=== PATIENT | female | born 1935 | race Caucasian/White ===

== ENCOUNTER → 2016-05-28 | Outpatient (CLI) | payer OTHER, BC ==
[~2016-05-28] MED LIST: ALEVE220 MG PO; AUGMENTIN875 MG PO; BENADRYL25 MG PO; CAPT25T PO; CAPTOPRIL25 MG PO; CELEBREX200 MG PO; CIPRO500 MG PO; CIPROFLOXACIN500 M1 PO; COUMADIN1 MG PO; COUMADIN4 MG PO; FOSAMAX70 MG PO; HYDROCODON-ACE1 EAC7 PO; IRON325 M1 PO; LISINOPRIL-HCT1 EAC3 PO; METRONIDAZOLE500 MG PO; NORCO 5/3251 TABLET PO; OYSTER SHELL W1 EACH PO; SENNA-TIME S T1 EACH PO; TYLENOL EXTRA500 MG PO; TYLENOL REGULA325 MG PO; ZOFRAN4 MG PO
== END | disposition home or self-care (01) ==
LOC: RAD 10:05
DX: R22.32 Localized swelling, mass and lump, left upper limb (principal); M79.622 Pain in left upper arm; Z72.0 Tobacco use
CPT/HCPCS: 93971

== ENCOUNTER 2016-06-10 02:09 | Emergency (ER) | payer OTHER, BC ==
[~2016-06-10] VITALS: Ht 167.6 cm; Wt 74.4 kg
[2016-06-10 02:37] LABS: HEMATOCRIT 40.2 % (36.0-46.0); MCH 32.2 PG (29.0-34.0); MCHC 34.8 G/DL (30.0-36.0); MCV 92.4 FL (83-99); MEAN PLAT.VOLUME 8.2 uM^3 (9.5-12.4); PLATELET COUNT 313 K/uL (156-360); RBC DIS.WIDTH-SD 42.8 % (39-53); RED BLOOD COUNT 4.35 M/uL (3.80-5.20); WHITE BLOOD COUNT 10.2 K/uL (4.1-10.2)
[2016-06-10 02:45] LABS: CHLORIDE 97 mEq/L (99-109); SODIUM 133 mEq/L (136-147)
[2016-06-10 02:46] LABS: GLUCOSE 107 mg/dL (70-99)
[2016-06-10 02:48] LABS: ANION GAP 10 MEQ/L (2-14)
[2016-06-10 02:50] LABS: GFR ESTIMATE (CALCULATED) > 59 mL/min/
[2016-06-10 02:51] LABS: UREA NITROGEN (BUN) 13 mg/dL (9-23)
[2016-06-10 02:58] LABS: TROP-I INTERPRETATION NEGATIVE; TROPONIN-I < 0.01 ng/mL (0.0-0.30)
[2016-06-10 03:18] LABS: ADD MIUA? YES; BILIRUBIN NEGATIVE; BLOOD MODERATE; COLOR STRAW ((YELLOW)); GLUCOSE (STRIP) NEGATIVE; KETONES NEGATIVE; LEUKOCYTES NEGATIVE; NITRITE NEGATIVE; PROTEIN (STRIP) NEGATIVE; SPECIFIC GRAVITY 1.005 (1.000-1.030); UROBILINOGEN 0.2 MG/DL (0.2-1.0)
[2016-06-10] MEDS ORDERED: PEPCID20 MG PO (03:26)
[2016-06-10] MEDS ORDERED: PREDNISONE50 MG PO (03:26)
[2016-06-10 03:28] LABS: BACTERIA RARE /HPF; EPITHELIAL CELLS RARE /HPF; MUCUS NONE SEEN /LPF; RED BLOOD CELLS 0-5 /HPF (0-5); UCUL ADDED? NO; WHITE BLOOD CELLS 0-5 /HPF (0-5)
[2016-06-10 03:35] VITALS: BP 131/79
== END 2016-06-10 03:37 | disposition home or self-care (01) ==
LOC: EME 02:09
PROVIDERS: Emergency Medicine
DX: R07.2 Precordial pain (principal); R21 Rash and other nonspecific skin eruption; I10 Essential (primary) hypertension; M19.90 Unspecified osteoarthritis, unspecified site; Z87.891 Personal history of nicotine dependence; Z88.1 Allergy status to other antibiotic agents
CPT/HCPCS: 71020; 80048; 81003; 84484; 85027; 93005; 99281; 99285; J1200; J2405; J2930; S0028

== ENCOUNTER 2016-06-12 00:50 | Observation (INO) | payer OTHER, BC ==
[~2016-06-12] VITALS: Ht 167.6 cm; Wt 70.0 kg
[~2016-06-12 00:50] MED LIST changes: +PEPCID20 MG PO; +PREDNISONE50 MG PO
[2016-06-12 01:22] LABS: HEMATOCRIT 40.4 % (36.0-46.0); MCHC 34.7 G/DL (30.0-36.0); MCV 92.4 FL (83-99); MEAN PLAT.VOLUME 8.1 uM^3 (9.5-12.4); PLATELET COUNT 357 K/uL (156-360); RBC DIS.WIDTH-CV 12.9 % (11.8-14.6); RBC DIS.WIDTH-SD 42.5 % (39-53); RED BLOOD COUNT 4.37 M/uL (3.80-5.20); WHITE BLOOD COUNT 8.1 K/uL (4.1-10.2)
[2016-06-12 01:29] LABS: CHLORIDE 99 mEq/L (99-109); POTASSIUM 3.7 mEq/L (3.7-5.4); SODIUM 133 mEq/L (136-147)
[2016-06-12 01:31] LABS: GLUCOSE 113 mg/dL (70-99)
[2016-06-12 01:32] LABS: ANION GAP 10 MEQ/L (2-14)
[2016-06-12 01:34] LABS: GFR ESTIMATE (CALCULATED) > 59 mL/min/
[2016-06-12 01:35] LABS: UREA NITROGEN (BUN) 17 mg/dL (9-23)
[2016-06-12 01:41] LABS: TROP-I INTERPRETATION NEGATIVE; TROPONIN-I < 0.01 ng/mL (0.0-0.30)
[2016-06-12] MEDS ORDERED: LISINOPRIL20 MG PO (02:00)
[2016-06-12] MEDS ORDERED: ERGOCALCIF50000 UNIT PO (02:00)
[2016-06-12 03:10] LABS: EOSINOPHIL (%) 0.4 % (0-5); IMMATURE GRANULOCYTE (%) 0.4 % (0.0-0.7); IMMATURE GRANULOCYTE COUNT 0.3 K/uL; LYMPHOCYTE COUNT 1.8 K/uL (1.0-2.8); MONOCYTE (%) 2.7 % (3-12); MONOCYTE COUNT 0.2 K/uL (0-0.8); NEUTROPHIL (%) 74.4 % (45-76); NEUTROPHIL COUNT 6.1 K/uL (1.8-6.4)
[2016-06-12 03:30] VITALS: BP 136/75
[2016-06-12 03:40] VITALS: BP 136/75
[2016-06-12 08:23] LABS: TROP-I INTERPRETATION NEGATIVE; TROPONIN-I 0.01 ng/mL (0.0-0.30)
[2016-06-12 08:43] LABS: C3 COMPLEMENT 98 MG/DL (58-170); C4 COMPLEMENT 20 MG/DL (10-40)
[2016-06-12 09:21] VITALS: BP 124/60
[2016-06-12] MEDS ORDERED: PREDNISONE50 MG PO (10:53)
[2016-06-12] MEDS ORDERED: ZANTAC150 MG PO (10:53)
[2016-06-12] MEDS ORDERED: BENADRYL25 MG PO (10:53)
[2016-06-12] MEDS ORDERED: PROTONIX40 MG PO (10:53)
[2016-06-12 12:15] VITALS: BP 121/58
[2016-06-12 13:10] LABS: TROP-I INTERPRETATION NEGATIVE; TROPONIN-I 0.01 ng/mL (0.0-0.30)
[2016-06-12 15:52] VITALS: BP 170/86
== END 2016-06-12 15:45 | disposition home or self-care (01) ==
LOC: EME 00:50 → EDOF 02:12 → 5WEST 03:20
PROVIDERS: Hospitalist; Physician Assistant Medical
DX: R07.89 Other chest pain (principal); L27.0 Generalized skin eruption due to drugs and medicaments taken internally; T36.1X5A Adverse effect of cephalosporins and other beta-lactam antibiotics, initial encounter; F41.9 Anxiety disorder, unspecified; K21.9 Gastro-esophageal reflux disease without esophagitis; R13.10 Dysphagia, unspecified; I10 Essential (primary) hypertension; M19.90 Unspecified osteoarthritis, unspecified site; G89.29 Other chronic pain; M81.0 Age-related osteoporosis without current pathological fracture; F17.210 Nicotine dependence, cigarettes, uncomplicated
CPT/HCPCS: 71020; 80048; 81003; 84484; 85025; 85027; 85651; 86038; 86140; 86160; 86160 90; 93005; 99281; 99285; C9113; G0378; J1200; J1644; J2920; J2930; S0028

== ENCOUNTER 2016-08-31 20:38 | Inpatient (IN) | payer OTHER, BC ==
[~2016-08-31] VITALS: Ht 167.6 cm; Wt 70.0 kg
[~2016-08-31 20:38] MED LIST changes: +ERGOCALCIF50000 UNIT PO; +LISINOPRIL20 MG PO; +PROTONIX40 MG PO; +ZANTAC150 MG PO
[2016-08-31 21:08] LABS: EOSINOPHIL (%) 1.3 % (0-5); EOSINOPHIL COUNT 0.2 K/uL (0-0.3); HEMATOCRIT 44.8 % (36.0-46.0); IMMATURE GRANULOCYTE (%) 1.1 % (0.0-0.7); IMMATURE GRANULOCYTE COUNT 0.2 K/uL; INSTRUMENT ABS NEUTROPHIL CT 7.2 K/uL; LYMPHOCYTE COUNT 5.9 K/uL (1.0-2.8); MCH 31.5 PG (29.0-34.0); MCHC 33.9 G/DL (30.0-36.0); MCV 92.9 FL (83-99); MEAN PLAT.VOLUME 9.3 uM^3 (9.5-12.4); MONOCYTE (%) 4.2 % (3-12); MONOCYTE COUNT 0.6 K/uL (0-0.8); NEUTROPHIL COUNT 7.2 K/uL (1.8-6.4); NRBC (%) 0.1 /100 WBC (0-0); PLATELET COUNT 163 K/uL (156-360); RBC DIS.WIDTH-CV 13.2 % (11.8-14.6); RBC DIS.WIDTH-SD 45.1 % (39-53); RED BLOOD COUNT 4.82 M/uL (3.80-5.20)
[2016-08-31 21:54] LABS: CHLORIDE 102 mEq/L (99-109); POTASSIUM 2.9 mEq/L (3.7-5.4); SODIUM 135 mEq/L (136-147)
[2016-08-31 21:56] LABS: GLUCOSE 140 mg/dL (70-99)
[2016-08-31 21:57] LABS: ANION GAP 13 MEQ/L (2-14)
[2016-08-31 21:58] LABS: TOTAL BILIRUBIN 0.3 mg/dL (0.0-1.0)
[2016-08-31 21:59] LABS: ALKALINE PHOSPHATASE 59 IU/L (3-129)
[2016-08-31 22:00] LABS: GFR ESTIMATE (CALCULATED) > 59 mL/min/
[2016-08-31 22:01] LABS: UREA NITROGEN (BUN) 14 mg/dL (9-23)
[2016-08-31 22:03] LABS: LIPASE 51 U/L (1.0-51.0)
[2016-09-01 00:17] LABS: INTERNAL CONTROL VALID? YES
[2016-09-01 00:31] LABS: ADD MIUA? YES; BILIRUBIN NEGATIVE; BLOOD SMALL; COLOR YELLOW ((YELLOW)); GLUCOSE (STRIP) NEGATIVE; KETONES NEGATIVE; LEUKOCYTES NEGATIVE; NITRITE NEGATIVE; PROTEIN (STRIP) NEGATIVE; SPECIFIC GRAVITY 1.014 (1.000-1.030); UROBILINOGEN 0.2 MG/DL (0.2-1.0)
[2016-09-01 00:48] LABS: C DIFF TOXIN NEGATIVE (NEGATIVE)
[2016-09-01 00:57] LABS: BACTERIA 1+ /HPF; EPITHELIAL CELLS RARE /HPF; HYALINE CASTS 0-5 /LPF; MUCUS NONE SEEN /LPF; RED BLOOD CELLS 0-5 /HPF (0-5); UCUL ADDED? NO; WHITE BLOOD CELLS 0-5 /HPF (0-5)
[2016-09-01 01:01] LABS: PROBE CHECK PASS; SPECIMEN PROCESSING CONTROL PASS
[2016-09-01 02:10] VITALS: BP 145/67
[2016-09-01 02:19] LABS: TROP-I INTERPRETATION NEGATIVE; TROPONIN-I 0.04 ng/mL (0.0-0.30)
[2016-09-01 03:15] LABS: TROP-I INTERPRETATION NEGATIVE; TROPONIN-I 0.01 ng/mL (0.0-0.30)
[2016-09-01 04:30] VITALS: BP 140/66
[2016-09-01 06:11] LABS: CHLORIDE 109 mEq/L (99-109); SODIUM 138 mEq/L (136-147)
[2016-09-01 06:12] LABS: GLUCOSE 109 mg/dL (70-99)
[2016-09-01 06:13] LABS: ANION GAP 10 MEQ/L (2-14)
[2016-09-01 06:15] LABS: ALKALINE PHOSPHATASE 45 IU/L (3-129); TOTAL BILIRUBIN 0.5 mg/dL (0.0-1.0)
[2016-09-01 06:16] LABS: GFR ESTIMATE (CALCULATED) > 59 mL/min/
[2016-09-01 06:17] LABS: UREA NITROGEN (BUN) 12 mg/dL (9-23)
[2016-09-01 06:24] LABS: TROP-I INTERPRETATION NEGATIVE; TROPONIN-I 0.06 ng/mL (0.0-0.30)
[2016-09-01 06:25] LABS: MCH 31.4 PG (29.0-34.0); MCHC 32.8 G/DL (30.0-36.0); MCV 95.6 FL (83-99); MEAN PLAT.VOLUME 8.4 uM^3 (9.5-12.4); PLATELET COUNT 263 K/uL (156-360); RBC DIS.WIDTH-CV 13.5 % (11.8-14.6); RED BLOOD COUNT 4.08 M/uL (3.80-5.20)
[2016-09-01 07:41] VITALS: BP 118/57
[2016-09-01 14:52] LABS: TROP-I INTERPRETATION NEGATIVE; TROPONIN-I 0.03 ng/mL (0.0-0.30)
[2016-09-01 16:29] VITALS: BP 141/65
[2016-09-01 19:30] VITALS: BP 144/67
[2016-09-01 22:42] LABS: INTERNAL CONTROL VALID? YES
[2016-09-01 23:08] LABS: C DIFF TOXIN NEGATIVE (NEGATIVE)
[2016-09-01 23:24] LABS: PROBE CHECK PASS; SPECIMEN PROCESSING CONTROL PASS
[2016-09-02] VITALS (7 sets, daily range): BP systolic 137–170; BP diastolic 63–79
[2016-09-02 07:59] LABS: EOSINOPHIL (%) 1.4 % (0-5); EOSINOPHIL COUNT 0.1 K/uL (0-0.3); HEMATOCRIT 32.7 % (36.0-46.0); IMMATURE GRANULOCYTE (%) 0.6 % (0.0-0.7); IMMATURE GRANULOCYTE COUNT 0.1 K/uL; LYMPHOCYTE COUNT 2.2 K/uL (1.0-2.8); MCHC 32.7 G/DL (30.0-36.0); MCV 94.8 FL (83-99); MEAN PLAT.VOLUME 8.4 uM^3 (9.5-12.4); MONOCYTE (%) 11.7 % (3-12); MONOCYTE COUNT 1.1 K/uL (0-0.8); NEUTROPHIL (%) 62.9 % (45-76); PLATELET COUNT 246 K/uL (156-360); RBC DIS.WIDTH-CV 13.8 % (11.8-14.6); RED BLOOD COUNT 3.45 M/uL (3.80-5.20)
[2016-09-02 08:02] LABS: WHITE BLOOD COUNT 9.6 K/uL (4.1-10.2)
[2016-09-02 08:37] LABS: ALKALINE PHOSPHATASE 38 IU/L (3-129); ANION GAP 6 MEQ/L (2-14); C-REACTIVE PROTEIN 79.6 MG/L (0-10); CHLORIDE 106 MEQ/L (99-109); GFR ESTIMATE (CALCULATED) > 59 mL/min/; MAGNESIUM 1.6 mg/dl (1.3-2.7); SAMPLE HEMOLYSIS CHECK 0; SAMPLE ICTERIC CHECK 0; SAMPLE LIPEMIA CHECK 0; SODIUM 135 MEQ/L (136-147); TOTAL BILIRUBIN 0.7 MG/DL (0.0-1.0); UREA NITROGEN (BUN) 5 mg/dL (9-23)
[2016-09-02 08:40] LABS: GLUCOSE 75 mg/dL (70-99); POTASSIUM 3.8 MEQ/L (3.7-5.4)
[2016-09-02 08:50] LABS: ERTH.SED.RATE 2 MM/HR (0-30)
[2016-09-03 04:17] VITALS: BP 171/76
[2016-09-03 07:53] VITALS: BP 160/84
[2016-09-03] MEDS ORDERED: CIPRO500 MG PO (08:12)
[2016-09-03] MEDS ORDERED: FLAGYL500 MG PO (08:12)
== END 2016-09-03 13:32 | disposition home or self-care (01) | DRG 872 ==
LOC: EME 20:38 → 4EAST 23:54 → EDOF 23:54 → 4EAST 09-01 01:47 → 5SOUTH 09-02 22:19
PROVIDERS: Emergency Medicine; Internal Medicine
PROC: 02HV33Z Insertion of Infusion Device into Superior Vena Cava, Percutaneous Approach (ICD-10-PCS; principal; 2016-08-31)
DX: A41.9 Sepsis, unspecified organism (principal); R65.20 Severe sepsis without septic shock; K51.00 Ulcerative (chronic) pancolitis without complications; K21.9 Gastro-esophageal reflux disease without esophagitis; Z96.642 Presence of left artificial hip joint; M81.0 Age-related osteoporosis without current pathological fracture; I10 Essential (primary) hypertension; F17.211 Nicotine dependence, cigarettes, in remission; E87.2 Acidosis; E87.6 Hypokalemia; I95.9 Hypotension, unspecified; E86.0 Dehydration
CPT/HCPCS: 71010; 74177; 80053; 80202; 81003; 83605; 83630; 83690; 83735; 84484; 85025; 85027; 85651; 86140; 86900; 86901; 87040; 87177; 87493; 87506; 93005; 99281; 99285; J1644; J2270; J2405; J2543; J3370; J3480; J7030; J7050; S0028

== ENCOUNTER 2016-11-02 21:41 | Inpatient (IN) | payer OTHER, BC ==
[~2016-11-02] VITALS: Ht 167.6 cm; Wt 73.6 kg
[~2016-11-02 21:41] MED LIST changes: +FLAGYL500 MG PO
[2016-11-02 22:55] LABS: HEMATOCRIT 44.3 % (36.0-46.0); MCH 30.9 PG (29.0-34.0); MCHC 33.4 G/DL (30.0-36.0); MCV 92.5 FL (83-99); MEAN PLAT.VOLUME 8.4 uM^3 (9.5-12.4); PLATELET COUNT 308 K/uL (156-360); RED BLOOD COUNT 4.79 M/uL (3.80-5.20); WHITE BLOOD COUNT 15.5 K/uL (4.1-10.2)
[2016-11-02 23:11] LABS: CHLORIDE 100 mEq/L (99-109); POTASSIUM 3.5 mEq/L (3.7-5.4); SODIUM 136 mEq/L (136-147)
[2016-11-02 23:13] LABS: GLUCOSE 127 mg/dL (70-99)
[2016-11-02 23:14] LABS: ANION GAP 12 MEQ/L (2-14)
[2016-11-02 23:15] LABS: TOTAL BILIRUBIN 0.4 mg/dL (0.0-1.0)
[2016-11-02 23:17] LABS: ALKALINE PHOSPHATASE 65 IU/L (3-129); GFR ESTIMATE (CALCULATED) 56 mL/min/
[2016-11-02 23:18] LABS: UREA NITROGEN (BUN) 15 mg/dL (9-23)
[2016-11-02 23:19] LABS: DIRECT BILIRUBIN 0.2 mg/dL (0.0-0.3)
[2016-11-02 23:20] LABS: LIPASE 37 U/L (1.0-51.0)
[2016-11-03 00:13] LABS: C DIFF TOXIN NEGATIVE (NEGATIVE)
[2016-11-03 00:16] LABS: EOSINOPHIL (%) 0.6 % (0-5); EOSINOPHIL COUNT 0.1 K/uL (0-0.3); IMMATURE GRANULOCYTE (%) 0.7 % (0.0-0.7); IMMATURE GRANULOCYTE COUNT 0.1 K/uL; INSTRUMENT ABS NEUTROPHIL CT 11.3 K/uL; LYMPHOCYTE COUNT 2.1 K/uL (1.0-2.8); MONOCYTE (%) 9.6 % (3-12); MONOCYTE COUNT 1.4 K/uL (0-0.8); NEUTROPHIL (%) 75.1 % (45-76); NEUTROPHIL COUNT 11.3 K/uL (1.8-6.4)
[2016-11-03 00:25] LABS: PROBE CHECK PASS; SPECIMEN PROCESSING CONTROL PASS
[2016-11-03 00:46] LABS: PROTHROMBIN TIME 11.4 SEC (10.2-12.9)
[2016-11-03 00:49] LABS: PTT 30.1 SEC (25-37)
[2016-11-03 04:09] VITALS: BP 126/97
[2016-11-03 08:09] VITALS: BP 155/74
[2016-11-03 11:44] VITALS: BP 147/84
[2016-11-03 14:41] LABS: ADD MIUA? YES; BILIRUBIN NEGATIVE; BLOOD MODERATE; COLOR YELLOW ((YELLOW)); GLUCOSE (STRIP) NEGATIVE; KETONES NEGATIVE; LEUKOCYTES NEGATIVE; NITRITE NEGATIVE; PROTEIN (STRIP) NEGATIVE; UROBILINOGEN 0.2 MG/DL (0.2-1.0)
[2016-11-03 15:20] LABS: BACTERIA NONE SEEN /HPF; EPITHELIAL CELLS NONE SEEN /HPF; MUCUS TRACE /LPF; RED BLOOD CELLS 40-50 /HPF (0-5); UCUL ADDED? NO; WHITE BLOOD CELLS 0-5 /HPF (0-5)
[2016-11-03 15:33] VITALS: BP 130/62
[2016-11-03] MEDS ORDERED: ASPIR-LOW81 MG PO (16:54)
[2016-11-03] MEDS ORDERED: CIPRO500 MG PO (16:56)
[2016-11-03] MEDS ORDERED: FLAGYL500 MG PO (16:56)
[2016-11-03 19:28] VITALS: BP 144/74
[2016-11-03 23:48] VITALS: BP 134/71
[2016-11-04 04:04] VITALS: BP 131/68
[2016-11-04 06:38] LABS: ALKALINE PHOSPHATASE 38 IU/L (3-129); ANION GAP 3 MEQ/L (2-14); CHLORIDE 106 MEQ/L (99-109); GFR ESTIMATE (CALCULATED) > 59 mL/min/; SAMPLE HEMOLYSIS CHECK 0; SAMPLE ICTERIC CHECK 0; SAMPLE LIPEMIA CHECK 0; SODIUM 137 MEQ/L (136-147); TOTAL BILIRUBIN 0.5 MG/DL (0.0-1.0); UREA NITROGEN (BUN) 7 mg/dL (9-23)
[2016-11-04 06:39] LABS: GLUCOSE 82 mg/dL (70-99); POTASSIUM 4.3 MEQ/L (3.7-5.4)
[2016-11-04 07:04] LABS: HEMATOCRIT 35.8 % (36.0-46.0); MCH 31.3 PG (29.0-34.0); MCHC 33.5 G/DL (30.0-36.0); MCV 93.5 FL (83-99); MEAN PLAT.VOLUME 8.3 uM^3 (9.5-12.4); PLATELET COUNT 264 K/uL (156-360); RBC DIS.WIDTH-CV 13.2 % (11.8-14.6); RBC DIS.WIDTH-SD 45.2 % (39-53); WHITE BLOOD COUNT 5.8 K/uL (4.1-10.2)
[2016-11-04 07:07] LABS: RED BLOOD COUNT 3.83 M/uL (3.80-5.20)
[2016-11-04 08:58] VITALS: BP 146/72
== END 2016-11-04 12:42 | disposition home or self-care (01) | DRG 393 ==
LOC: EME → EDBD 21:41 → EME 21:41 → 5SOUTH 23:49 → EDOF 23:49 → ENRESERV 23:52 → 5SOUTH 11-03 03:54
PROVIDERS: Emergency Medicine; Physician Assistant Medical
DX: K55.9 Vascular disorder of intestine, unspecified (principal); N17.9 Acute kidney failure, unspecified; R65.11 Systemic inflammatory response syndrome (SIRS) of non-infectious origin with acute organ dysfunction; E86.0 Dehydration; E87.6 Hypokalemia; I10 Essential (primary) hypertension; F17.200 Nicotine dependence, unspecified, uncomplicated; Z96.642 Presence of left artificial hip joint; Z80.3 Family history of malignant neoplasm of breast; Z82.3 Family history of stroke
CPT/HCPCS: 74176; 80048; 80053; 80076; 81003; 83605; 83690; 85025; 85027; 85610; 85651; 85730; 86140; 87040; 87493; 93005; 99281; 99285; J1644; J2270; J2405; J2543; J3010; J3480; J7030; J7050

== ENCOUNTER 2017-10-31 18:53 | Inpatient (IN) | payer OTHER, BC ==
[~2017-10-31] VITALS: Ht 167.6 cm; Wt 66.7 kg
[~2017-10-31 18:53] MED LIST changes: +ASPIR-LOW81 MG PO
[2017-10-31 19:32] LABS: BASOPHIL (%) 0.2 % (0-1); EOSINOPHIL (%) 0.7 % (0-5); EOSINOPHIL COUNT 0.1 K/uL (0-0.3); HEMATOCRIT 41.5 % (36.0-46.0); HEMOGLOBIN 14.5 G/DL (11.9-15.5); IMMATURE GRANULOCYTE (%) 1.3 % (0.0-0.7); LYMPHOCYTE (%) 26.3 % (15-42); LYMPHOCYTE COUNT 4.5 K/uL (1.0-2.8); MCH 31.3 PG (29.0-34.0); MCHC 34.9 G/DL (30.0-36.0); MCV 89.6 FL (83-99); MONOCYTE (%) 4.9 % (3-12); MONOCYTE COUNT 0.8 K/uL (0-0.8); NEUTROPHIL (%) 66.6 % (45-76); NEUTROPHIL COUNT 11.5 K/uL (1.8-6.4); NRBC (%) 0.2 /100 WBC (0-0); PLATELET COUNT 201 K/uL (156-360); RBC DIS.WIDTH-CV 13.3 % (11.8-14.6); RBC DIS.WIDTH-SD 43.5 % (39-53); RED BLOOD COUNT 4.63 M/uL (3.80-5.20); WHITE BLOOD COUNT 17.2 K/uL (4.1-10.2)
[2017-10-31 19:38] LABS: INTER. NORMALIZED RATIO 1.3
[2017-10-31 19:41] LABS: PTT 31.3 SEC (25-37)
[2017-10-31 19:42] LABS: ALBUMIN 3.6 g/dL (3.2-4.8); CHLORIDE 101 mEq/L (99-109); POTASSIUM 3.2 mEq/L (3.7-5.4); SODIUM 136 mEq/L (136-147)
[2017-10-31 19:45] LABS: GLUCOSE 156 mg/dL (70-99); TOTAL PROTEIN 6.3 g/dL (6.4-8.3)
[2017-10-31 19:46] LABS: TOTAL BILIRUBIN 0.5 mg/dL (0.0-1.0)
[2017-10-31 19:48] LABS: ALKALINE PHOSPHATASE 237 IU/L (3-129); CREATININE 0.9 mg/dL (0.6-1.3); GFR ESTIMATE (CALCULATED) > 59 mL/min/
[2017-10-31 19:49] LABS: UREA NITROGEN (BUN) 13 mg/dL (9-23)
[2017-10-31 19:50] LABS: AST (GOT) 23 IU/L (2-34); DIRECT BILIRUBIN 0.2 mg/dL (0.0-0.3)
[2017-10-31 19:51] LABS: ALT (GPT) 13 IU/L (3-49)
[2017-10-31 19:52] LABS: LIPASE 60 U/L (1.0-51.0)
[2017-10-31 19:53] LABS: TROP-I INTERPRETATION NEGATIVE; TROPONIN-I < 0.01 ng/mL (0.0-0.30)
[2017-10-31] MEDS ORDERED: LO-DOSE ASPIRIN81 M1 PO (22:38)
[2017-10-31] MEDS ORDERED: ALEVE220 MG PO (22:38)
[2017-10-31] MEDS ORDERED: VENTOLIN HFA18 GM IH (22:39)
[2017-10-31] MEDS ORDERED: CODEINE-GUAIFE120 ML PO (22:39)
[2017-10-31] MEDS ORDERED: TYLENOL EXTRA500 MG PO (22:39)
[2017-11-01] VITALS (27 sets, daily range): BP systolic 84–128; BP diastolic 50–76
[2017-11-01 01:03] LABS: APPEARANCE CLEAR ((CLEAR)); BILIRUBIN NEGATIVE; BLOOD LARGE; COLOR YELLOW ((YELLOW)); GLUCOSE (STRIP) NEGATIVE; KETONES NEGATIVE; LEUKOCYTES TRACE; NITRITE NEGATIVE; PROTEIN (STRIP) 30; SPECIFIC GRAVITY 1.031 (1.000-1.030); UROBILINOGEN 0.2 MG/DL (0.2-1.0)
[2017-11-01 01:16] LABS: BACTERIA RARE /HPF; EPITHELIAL CELLS RARE /HPF; MUCUS TRACE /LPF; RED BLOOD CELLS 20-30 /HPF (0-5); UCUL ADDED? YES
[2017-11-01 01:36] LABS: COMMENTS - BLOOD GASES C+; DEVICE NC; O2 FLOW 2 L/MIN; PCO2 43 mm Hg (35-45); SITE RR; TOTAL RESP RATE 21 resp/min; pH 7.28 (7.35-7.45)
[2017-11-01 01:37] LABS: BASE EXCESS -6.3 mEq/L (-3 to +3); BICARBONATE 20.2 mEq/L (22-26); CARBOXY HGB 2.5 % (0-5); METHEMOGLOBIN 1.2 % (0-1.5); O2 SATURATION (CALCULATED) 90.9 % (95-99); PO2 67 mm Hg (80-100)
[2017-11-01 05:34] LABS: COMMENTS - BLOOD GASES C+A+; DEVICE NC; O2 FLOW 2 L/MIN; SITE RR
[2017-11-01 05:35] LABS: BASE EXCESS -7.6 mEq/L (-3 to +3); BICARBONATE 18.2 mEq/L (22-26); CARBOXY HGB 2.2 % (0-5); METHEMOGLOBIN 1.1 % (0-1.5); PCO2 37 mm Hg (35-45); PO2 68 mm Hg (80-100)
[2017-11-01 05:38] LABS: HEMATOCRIT 39.7 % (36.0-46.0); MCH 30.4 PG (29.0-34.0); MCHC 32.7 G/DL (30.0-36.0); RBC DIS.WIDTH-CV 13.6 % (11.8-14.6); RBC DIS.WIDTH-SD 46.5 % (39-53); RED BLOOD COUNT 4.27 M/uL (3.80-5.20); WHITE BLOOD COUNT 16.1 K/uL (4.1-10.2)
[2017-11-01 05:41] LABS: PLATELET COUNT 263 K/uL (156-360)
[2017-11-01 06:53] LABS: CHLORIDE 106 MEQ/L (99-109); CREATININE 0.9 MG/DL (0.6-1.3); GFR ESTIMATE (CALCULATED) > 59 mL/min/; GLUCOSE 137 mg/dL (70-99); MAGNESIUM 1.7 mg/dl (1.3-2.7); PHOSPHORUS 4.2 mg/dL (2.5-4.9); SODIUM 134 MEQ/L (136-147); UREA NITROGEN (BUN) 14 mg/dL (9-23)
[2017-11-01 06:57] LABS: POTASSIUM 4.7 MEQ/L (3.7-5.4)
[2017-11-01 07:04] LABS: C DIFF TOXIN NEGATIVE (NEGATIVE)
[2017-11-02] VITALS (15 sets, daily range): BP systolic 100–149; BP diastolic 45–88
[2017-11-02 05:30] LABS: HEMATOCRIT 29.7 % (36.0-46.0); MCH 31.3 PG (29.0-34.0); MCHC 33.3 G/DL (30.0-36.0); PLATELET COUNT 227 K/uL (156-360); RBC DIS.WIDTH-CV 14.1 % (11.8-14.6); WHITE BLOOD COUNT 7.9 K/uL (4.1-10.2)
[2017-11-02 05:31] LABS: HEMOGLOBIN 9.9 G/DL (11.9-15.5); RED BLOOD COUNT 3.16 M/uL (3.80-5.20)
[2017-11-02 06:01] LABS: ALBUMIN 2.6 G/DL (3.2-4.8); ALKALINE PHOSPHATASE 76 IU/L (3-129); ALT (GPT) 9 IU/L (3-49); AST (GOT) 18 IU/L (2-34); CHLORIDE 111 MEQ/L (99-109); CREATININE 0.5 MG/DL (0.6-1.3); GFR ESTIMATE (CALCULATED) > 59 mL/min/; SODIUM 138 MEQ/L (136-147); TOTAL BILIRUBIN 0.4 MG/DL (0.0-1.0); TOTAL PROTEIN 4.4 G/DL (6.4-8.3); UREA NITROGEN (BUN) 5 mg/dL (9-23)
[2017-11-02 06:06] LABS: GLUCOSE 97 mg/dL (70-99); POTASSIUM 3.7 MEQ/L (3.7-5.4)
[2017-11-03 04:03] VITALS: BP 136/63
[2017-11-03 07:53] VITALS: BP 134/75
[2017-11-03 08:28] LABS: HEMATOCRIT 28.3 % (36.0-46.0); HEMOGLOBIN 9.6 G/DL (11.9-15.5); MCHC 33.9 G/DL (30.0-36.0); MCV 91.3 FL (83-99); PLATELET COUNT 214 K/uL (156-360); RBC DIS.WIDTH-CV 13.6 % (11.8-14.6); RBC DIS.WIDTH-SD 45.7 % (39-53); WHITE BLOOD COUNT 8.3 K/uL (4.1-10.2)
[2017-11-03 08:53] LABS: CHLORIDE 104 MEQ/L (99-109); POTASSIUM 3.3 MEQ/L (3.7-5.4); SODIUM 135 MEQ/L (136-147)
[2017-11-03 08:58] LABS: CREATININE 0.5 MG/DL (0.6-1.3); GFR ESTIMATE (CALCULATED) > 59 mL/min/; GLUCOSE 94 mg/dL (70-99); LIPASE 17 U/L (1.0-51.0); UREA NITROGEN (BUN) 2 mg/dL (9-23)
[2017-11-03 11:32] VITALS: BP 124/65
[2017-11-03 16:17] VITALS: BP 126/65
[2017-11-03 20:19] VITALS: BP 130/63
[2017-11-04 00:01] VITALS: BP 137/65
[2017-11-04 05:03] VITALS: BP 149/70
[2017-11-04 07:23] LABS: BASOPHIL (%) 0.1 % (0-1); EOSINOPHIL (%) 4.5 % (0-5); EOSINOPHIL COUNT 0.3 K/uL (0-0.3); HEMATOCRIT 28.7 % (36.0-46.0); HEMOGLOBIN 9.5 G/DL (11.9-15.5); IMMATURE GRANULOCYTE (%) 1.3 % (0.0-0.7); LYMPHOCYTE (%) 21.6 % (15-42); LYMPHOCYTE COUNT 1.5 K/uL (1.0-2.8); MCH 30.3 PG (29.0-34.0); MCHC 33.1 G/DL (30.0-36.0); MCV 91.4 FL (83-99); MONOCYTE (%) 14.7 % (3-12); NEUTROPHIL (%) 57.8 % (45-76); NEUTROPHIL COUNT 3.9 K/uL (1.8-6.4); PLATELET COUNT 242 K/uL (156-360); RBC DIS.WIDTH-CV 13.7 % (11.8-14.6); RED BLOOD COUNT 3.14 M/uL (3.80-5.20); WHITE BLOOD COUNT 6.7 K/uL (4.1-10.2)
[2017-11-04 07:33] VITALS: BP 163/75
[2017-11-04 07:44] LABS: CHLORIDE 102 MEQ/L (99-109); CREATININE 0.5 MG/DL (0.6-1.3); GFR ESTIMATE (CALCULATED) > 59 mL/min/; GLUCOSE 83 mg/dL (70-99); POTASSIUM 3.5 MEQ/L (3.7-5.4); SODIUM 134 MEQ/L (136-147); UREA NITROGEN (BUN) 2 mg/dL (9-23)
[2017-11-04 11:44] VITALS: BP 144/77
[2017-11-04 15:41] VITALS: BP 125/65
[2017-11-04 20:11] VITALS: BP 147/68
[2017-11-05 04:42] VITALS: BP 148/69
[2017-11-05 05:54] LABS: BASOPHIL (%) 0.4 % (0-1); EOSINOPHIL (%) 5.9 % (0-5); EOSINOPHIL COUNT 0.4 K/uL (0-0.3); HEMATOCRIT 30.5 % (36.0-46.0); HEMOGLOBIN 10.4 G/DL (11.9-15.5); IMMATURE GRANULOCYTE (%) 4.2 % (0.0-0.7); LYMPHOCYTE (%) 24.2 % (15-42); LYMPHOCYTE COUNT 1.6 K/uL (1.0-2.8); MCH 30.8 PG (29.0-34.0); MCHC 34.1 G/DL (30.0-36.0); MCV 90.2 FL (83-99); MONOCYTE (%) 15.1 % (3-12); NEUTROPHIL (%) 50.2 % (45-76); NEUTROPHIL COUNT 3.4 K/uL (1.8-6.4); PLATELET COUNT 292 K/uL (156-360); RBC DIS.WIDTH-CV 13.6 % (11.8-14.6); RBC DIS.WIDTH-SD 44.8 % (39-53); RED BLOOD COUNT 3.38 M/uL (3.80-5.20); WHITE BLOOD COUNT 6.7 K/uL (4.1-10.2)
[2017-11-05 06:19] LABS: CHLORIDE 101 MEQ/L (99-109); CREATININE 0.5 MG/DL (0.6-1.3); GFR ESTIMATE (CALCULATED) > 59 mL/min/; GLUCOSE 88 mg/dL (70-99); POTASSIUM 3.8 MEQ/L (3.7-5.4); SODIUM 138 MEQ/L (136-147); UREA NITROGEN (BUN) 2 mg/dL (9-23)
[2017-11-05 07:32] VITALS: BP 168/76
[2017-11-05] MEDS ORDERED: FLORASTOR250 MG PO (08:30)
[2017-11-05] MEDS ORDERED: FLAGYL500 MG PO (08:31)
[2017-11-05] MEDS ORDERED: SODIUM CHLORIDE AEROSOL (08:34)
== END 2017-11-05 11:43 | disposition home or self-care (01) | DRG 871 ==
LOC: EME → EDBD 18:53 → ENRESERV 11-01 00:32 → 4WEST 11-01 00:32 → 5SOUTH 11-01 00:32 → EDOF 11-01 00:32 → ENRESERV 11-01 01:02 → 4WEST 11-01 02:04 → ENRESERV 11-02 16:31 → 5SOUTH 11-02 19:35
PROVIDERS: Emergency Medicine; Internal Medicine; Surgery
DX: A41.9 Sepsis, unspecified organism (principal); K55.039 Acute (reversible) ischemia of large intestine, extent unspecified; R65.21 Severe sepsis with septic shock; J18.9 Pneumonia, unspecified organism; J47.1 Bronchiectasis with (acute) exacerbation; J47.0 Bronchiectasis with acute lower respiratory infection; T17.890A Other foreign object in other parts of respiratory tract causing asphyxiation, initial encounter; E87.2 Acidosis; K57.92 Diverticulitis of intestine, part unspecified, without perforation or abscess without bleeding; E86.0 Dehydration; E87.6 Hypokalemia; D64.9 Anemia, unspecified; F17.210 Nicotine dependence, cigarettes, uncomplicated; I10 Essential (primary) hypertension; M81.0 Age-related osteoporosis without current pathological fracture; N28.9 Disorder of kidney and ureter, unspecified; Z96.642 Presence of left artificial hip joint; Z79.51 Long term (current) use of inhaled steroids; Z79.82 Long term (current) use of aspirin; Z80.3 Family history of malignant neoplasm of breast; Z82.3 Family history of stroke
CPT/HCPCS: 36600; 71045; 71275; 74177; 80048; 80053; 80076; 81003; 82330; 83605; 83690; 83735; 83880; 84100; 84484; 85025; 85027; 85610; 85730; 87040; 87076; 87086; 87185; 87493; 87506; 87641; 87801; 93005; 94640; 94799; 99281; 99285; C9113; J0500; J0696; J0744; J1200; J1644; J2405; J2543; J2765; J3010; J3370; J3480; J7030; J7050; S0028; S0030